=== PATIENT | female | born 1985 | race Caucasian/White ===

== ENCOUNTER 2020-10-19 05:56 | Inpatient (IN) ==
[2020-10-19] MEDS ORDERED: Lidocaine 1% 20 ML MDV INFILT PRN (06:00)
[2020-10-19] MEDS ORDERED: Metoclopramide 10 MG/2 ML VIAL IVP PRN (06:00)
[2020-10-19] MEDS ORDERED: Famotidine 20 MG/2 ML VIAL IVP PRN (06:00)
[2020-10-19] MEDS ORDERED: Naloxone 0.4 MG/ML INJ IVP PRN (06:00)
[2020-10-19] MEDS ORDERED: *HR* FentaNYL (PF) 100 MCG/2 ML VIAL IVP PRN (06:00)
[2020-10-19] MEDS ORDERED: miSOPROStoL 25 MCG TABLET PO PRN (06:00)
[2020-10-19] MEDS ORDERED: Ringers Solution, Lactated 1,000 ML IVC SCH (06:00)
[2020-10-19 06:57] LABS: Basophils % 0.3 %; Eosinophils # 0.1 K/mcL (0.0-0.6); Eosinophils % 0.5 %; Hematocrit 33.9 % (35.3-44.9); Hemoglobin 12.1 g/dL (11.5-15.4); Immature Granulocytes % 0.4 % (0-4); Lymphocytes # 1.6 K/mcL (0.6-4.6); Lymphocytes % 13.1 %; Mean Corpuscular HGB Conc 35.7 g/dL (31.6-35.5); Mean Corpuscular Volume 92.4 fL (83.0-100.0); Mean Platelet Volume 10.3 fL (9.4-12.4); Monocytes % 8.5 %; Neutrophils # 9.2 K/mcL (1.6-8.9); Platelet Count 220 K/mcL (140-400); Red Blood Count 3.67 M/mcL (3.82-4.97); Red Cell Distribution Width 12.8 % (11.5-14.5); Segmented Neutrophils % 77.2 %; White Blood Count 11.9 K/mcL (4.3-11.1)
[2020-10-19] MEDS ORDERED: Penicillin G Potassium 5,000,000 UNIT in 0.9 % Sodium Chloride Mini Bag 100 ML IVPB ONE (07:14)
[2020-10-19] MEDS ORDERED: EPHEDrine 50 MG/ML VIAL IVP PRN (09:09)
[2020-10-19] MEDS ORDERED: *HR* FentaNYL (PF) 100 MCG/2 ML VIAL EP ONE (09:09)
[2020-10-19] MEDS ORDERED: Bupivacaine-MPF 0.25% 10 ML VIAL EP ONE (09:09)
[2020-10-19] MEDS ORDERED: *HR* FentaNYL (PF) 100 MCG/2 ML VIAL ONE (09:11)
[2020-10-19] MEDS ORDERED: Bupivacaine-MPF 0.25% 10 ML VIAL ONE (09:11)
[2020-10-19 09:13] LABS: Amphetamine Screen,Urine Negative ng/mL (Cutoff=1000); Barbiturate Screen,Urine Negative ng/mL (Cutoff=200); Benzodiazepines Screen,Urine Negative ng/mL (Cutoff=200); Cannabinoid Screen,Urine Negative ng/mL (Cutoff = 50); Cocaine Screen,Urine Negative ng/mL (Cutoff= 300); Opiate Screen,Urine Negative ng/mL (Cutoff=300); Phencyclidine Screen,Urine Negative ng/mL (Cutoff=25)
[2020-10-19] MEDS ORDERED: Epidural Premix (fent/bupiv) 110 ML EP SCH (09:15)
[2020-10-19] MEDS ORDERED: Oxytocin 20 units/ LR 1000 mL 20 UNIT/1,000 ML BAG IVC SCH ×2 (11:15→19:10)
[2020-10-19] MEDS: Penicillin G Potassium 2,500,000 UNIT/105 ML MLS IVPB SCH ×2 (12:12→15:50)
[2020-10-19] MEDS ORDERED: Rho Immune Globulin 1,500 UNIT SYRINGE IM PRN (19:10)
[2020-10-19] MEDS ORDERED: Acetaminophen 325 MG TABLET PO PRN (19:10)
[2020-10-19] MEDS ORDERED: Ibuprofen 600 MG TABLET PO PRN (19:10)
[2020-10-20] MEDS ORDERED: Prenatal Vit/FA 1 EACH TABLET PO SCH (09:00)
[2020-10-20 16:04] VITALS: BP 107/53
== END 2020-10-20 17:49 | disposition home or self-care (01) | DRG 807 ==
LOC: 1NENULAB 05:56 → 1NENUOBS 21:08
PROVIDERS: ADMIT Obstetrics & Gynecology; ATTEND Obstetrics & Gynecology